=== PATIENT | female | born 1980 | race Caucasian/White ===

== ENCOUNTER 2024-06-04 02:29 | Day surgery (SDC) | payer OTHER, SELFPAY ==
--- NOTE | 2024-05-23 09:31 | PC.NURSE ---
Report to the Outpatient Waiting Room, entrance under the green pavilion located off [facility], at time ___0700____ on date ___[id number]____. Planned Procedure Time: ___0900 .? Time changes happen often and if your time is changed the preop area will call you the afternoon before. - You and your visitor will be asked to self-screen and do not enter if you have any COVID symptoms. Please call surgeon if you need to reschedule. - A mask is optional within the hospital at this time. Patients may have clear liquids (water, carbonated beverages, clear teas, apple juice) until 3 hours prior to surgery with a maximum of 20 ounces. - No food from midnight until time of surgery and no smoking. This includes no chewing gum, candy or mints. - Take only the following medications with a SIP of water on the morning of surgery: n/a DO NOT STOP ANY OF YOUR OTHER PRESCRIPTION MEDICATIONS PRIOR TO SURGERY EXCEPT THE FOLLOWING Medications to discontinue per physician: Take your last dose of multivitamin on 05-31-2024 Please no make-up, nail pashto, hairspray, perfume, deodorant, or body powder the day of surgery.? No jewelry (including any body piercings) or valuables the day of surgery, leave them at home.? Please take a shower or bath the night before, or the morning of, surgery with an antibacterial soap.? Wear comfortable, loose fitting clothing.? - Jewelry must be removed prior to entering the operating room.? Rings and piercings that are not removed may be cut off. - The hospital will not accept responsibility for valuables.? - Please leave all valuables, including medications, at home the day of surgery. If you are going home after surgery, a licensed truck driver supervisor must drive you home.? - NO public transportation without another adult if you receive anesthesia. - We recommend that an adult stay with you for 24 hours following discharge. - We also recommend that you do not drive, make important decision, drink alcoholic beverages, or take any drugs that were not prescribed by your health care provider for at least 24 hours after your discharge time. For Pediatric surgeries, we recommend two adults accompany the child home. Follow any additional instructions given to you from your surgeon. Telephone instructions given to ___patient ( Dorothy ) and asked if any additional questions and then verbalized understanding. Patient advised to call surgeon office or pre surgery nurse liaison [phone] if any additional questions.
[2024-05-23 09:57] VITALS: BMI 26.5
[2024-06-04 07:10] VITALS: BP 117/71; PULSE 70; RESP 16; TEMP 36.1; O2SAT 100
--- NOTE | 2024-06-04 07:15 | WPDANESEPPF ---
Anes - Initial Pre Proc Eval Procedure: Operation Date: 06/04/24 09:00 Proposed Procedures p Hysteroscopy with Biopsy of Endometrium and/or Polypectomy - Bentley Macario MD Date/Time: 06/04/24 07:15 Surgeon: Bentley Macario MD Pre Op Diagnosis: abnormal uterine bleeding Patient Data Age: 44 Gender: F Height: 1.6 m Weight: 68.03 kg Allergies Allergy/AdvReac Type Severity Reaction Status Date / Time pineapple Allergy Intermediate Itching Verified 06/04/24 07:15 Home Medications ?Medication ?Instructions ?Recorded ?Confirmed ?Type multivitamin (Daily Multi-Vitamin 1 tablet PO DAILY 05/23/24 05/23/24 History tablet) Patient hx anesthesia problems: none Family hx anesthesia problems: none Results Review: All pre-operative results and documents have been reviewed as part of the pre-operative evaluation. [facility] Social History Social History Smoking status: Never smoker Second hand tobacco smoke exposure: No Alcohol intake: current Alcohol use details: rare <1 per week Substance use: never Substance use type: does not use Living arrangements: alone Spiritual care concerns: No Anes - Eval Final PreProcedure Day of Procedure 06/04/24 07:15 Patient weight: overweight Heart: regular rate and rhythm Lungs: clear to auscultation Airway: Mallampati scale class II Neurological: alert and oriented Last oral intake: >/= 8 hours ASA classification: I Emergent: no Anesthetic plan: proceed Anesthesia type and monitoring: general GIVS and standard monitoring Results Review: All pre-operative results and documents have been reviewed as part of the pre-operative evaluation. Informed Consent: The patient's anesthetic plan and its attendant risks and benefits were discussed with the patient/family/POA. Questions were solicited and answers provided to the satisfaction of the patient/family/POA.
[2024-06-04] MEDS: ACETAMINOPHEN 500 MG TABLET 1000 MG PO (07:40)
[2024-06-04 07:44] LABS: BEDSIDEPREGUCG Negative (Negative)
[2024-06-04] MEDS: LACTATED RINGERS 1,000 ML 30 ML IV CONT (07:44)
--- NOTE | 2024-06-04 07:45 | PM.IMHP ---
H&P: HPI History of Present Illness Date/Time: 06/04/24 07:45 Chief Complaint: intermenstrual bleeding Narrative: Patient is a 44 year old female who presents for hysteroscopy and polypectomy. She presented to the office for an episode of intermenstrual bleeding. She underwent evaluation with pelvic US that demonstrated an 8mm hyperechoic focus in the endometrium with a feeder vessel, suspicious for endometrial polyp. She denies further episodes of irregular bleeding, however given US findings was counseled on polyp removal. Patient desires to move forward with polyp removal. Denies nausea, vomiting, diarrhea, constipation, or abdominal pain. On menses currently. Review of Systems Review of Systems: All systems reviewed & are unremarkable except as noted in HPI and below PMFSH Social History Social History Smoking status: Never smoker Second hand tobacco smoke exposure: No Alcohol intake: current Alcohol use details: rare <1 per week Substance use: never Substance use type: does not use Living arrangements: alone Spiritual care concerns: No Meds Home Medications and Allergies Home Medications ?Medication ?Instructions ?Recorded ?Confirmed ?Type multivitamin (Daily Multi-Vitamin 1 tablet PO DAILY 05/23/24 06/04/24 History tablet) Allergies Allergy/AdvReac Type Severity Reaction Status Date / Time pineapple Allergy Intermediate Itching Verified 06/04/24 07:15 Vital Signs Vital Signs - 24 hr 06/04/24 07:10 Temperature 97 F L Pulse Rate 70 Respiratory Rate 16 Blood Pressure 117/71 Pulse Oximetry 100 Oxygen Delivery Room Air Exam Const: General: comfortable and no acute distress HENMT: Mouth: Yes moist mucous membranes Resp: Effort & Inspection: normal respiratory effort Cardio: Rate: regular rate Skin: General skin exam: normal color Extrem: General: normal to inspection Psych: Mental Status: mental status grossly normal Assessment and Plan Assessment and plan (1) Abnormal uterine bleeding due to endometrial polyp: Code(s): N93.9 - Abnormal uterine and vaginal bleeding, unspecified; N84.0 - Polyp of corpus uteri Status: Acute Assessment and Plan: - one episode of intermenstrual bleeding 01/2024 - otherwise normal periods - pelvic US demonstrates possible endometrial polyp with feeder vessel - risks and benefits of removal discussed with patient - patient desires to proceed with hysteroscopy and polypectomy
--- NOTE | 2024-06-04 08:26 | WPDHPUPDATE1 ---
History and Physical Update Update Date/Time: 06/04/24 08:26 History and Physical has been reviewed, including an updated exam of the patient. There are NO changes in the patient's condition. Risks, benefits, and alternatives have been discussed and questions answered. Patient agrees to proceed with procedure.
[2024-06-04] MEDS: LIDO 1%/EPINEPHRINE 1:100,000 50 ML VIAL 10 ML INFILTRATE (09:06)
--- NOTE | 2024-06-04 09:11 | W.PM.PROC2 ---
Procedure Note - Detailed Date of Procedure 06/04/24 Pre-op Diagnosis abnormal uterine bleeding Post-op Diagnosis Same Procedure Performed hysteroscopy, polypectomy Surgeon Bentley Macario MD Anesthesia MAC (with paracervical block) Findings normal appearing tubal ostia bilaterally; endometrial polyp attached to left endometrial sidewall, otherwise normal appearing endometrial cavity Description of Procedure The patient was taken to the operating room with IVFs running. She was placed into the dorsal supine position where she received MAC without any difficulty. The patient was placed in the dorsal lithotomy position using Mike stirrups. EUA revealed findings as above. She was then prepped and draped in a normal sterile fashion. A time-out procedure was performed and all members of the OR team agreed on the patient and plan. A bivalve speculum was then inserted into the patient's vagina. The anterior lip of the cervix was grasped with a single tooth tenaculum. The uterus was gently sounded to 7 cm. The hysteroscope was then inserted into the uterine cavity using saline as the distension media and revealed the above findings. Both ostia were identified and pictures were taken. At this point, the morcellator was then introduced into the hysteroscope and calibrated. The tip of the morcellator was then applied to the polyp and activated. The polyp was removed to its base. At the end of the procedure, the uterine cavity was clear of all pathology. The specimen was sent for pathology. The hysteroscope and tenaculum were removed. The speculum was then reintroduced into the vagina and the anterior lip of the cervix was hemostatic. The speculum was then removed. The patient tolerated the procedure well. Sponge, lap, and instrument counts were correct X2. The patient was taken out of the dorsal lithotomy position and was awakened from anesthesia. She was taken to the recovery room in stable condition. Estimated Blood Loss 5 Pathology Yes Complications No immediate complications Condition Stable Disposition Same day
[2024-06-04 09:14] VITALS: BP 91/74; PULSE 83; RESP 16; O2SAT 92
[2024-06-04 09:45] VITALS: BP 116/65; PULSE 74; RESP 16; O2SAT 96
[2024-06-04 10:15] VITALS: BP 118/67; PULSE 70; RESP 16
[2024-06-04 10:30] VITALS: BP 120/65; PULSE 72; RESP 16
--- OUTSIDE RECORDS SUMMARY | 2024-06-07 11:16 | XMS_ITS | Referral Summary ---
Author Organization [facility] [employer] Address [address] [place] [address] Care Team Providers Care Patient Safety Coordinator Name Role Phone Unavailable Primary Care Provider Unavailabl e Source Comments [facility] [employer],non-owned Affiliates and Associated Physician Practices is amultiple site organization consisting of ambulatory clinics and hospital sitesin [place], [place], [place] and [place]. This disclosure is being madepursuant to the Care Everywhere program and may not contain all information available regarding this patient. Last updated 18.[employer] Allergies No known active allergies Medications * Be aware that medications may not be up to date on this document. Alwaysverify current medications with the patient. Medication Sig Dispensed Refills Start Date End Date Status albuterol HFA (VENTOLIN HFA) 108 (90 BASE) MCG/ACT inhaler Inhale 2 Puffs by mouth every 6 hours as needed for Wheezing or Cough 1 Inhaler 09/03/2016 Active fluticasone propionate (FLONASE ALLERGY RELIEF) 50 MCG/ACT nasal sprayIndications:Alonzo al Signs and Symptoms [place]i 2 Sprays into each nostril once daily Reasons: Signs and Symptoms of Nose Diseases 1 Bottle 09/03/2016 Active Active Problems No known active problems Social History Tobacco Use Types Packs/Day Years Used Date Smoking Tobacco: Never Sex and Gender Information Value Date Recorded Sex Assigned at Not on file Gender Identity Not on file Sexual Orientation Not on file Last Filed Vital Signs Vital Sign Reading Time Taken Comments Blood Pressure 118/76 09/03/2016 9:37 AM CDT Pulse 82 09/03/2016 9:37 AM CDT Temperature 37.2 ??C (99 ??F) 09/03/2016 9:37 AM CDT Respiratory Rate 16 09/03/2016 9:37 AM CDT Oxygen Saturation 99% 09/03/2016 9:37 AM CDT Inhaled Oxygen Concentration - - Weight 61.7 kg (136 lb) 09/03/2016 9:37 AM CDT Height 160 cm (5' 3 ) 09/03/2016 9:37 AM CDT Body Mass Index 24.09 09/03/2016 9:37 AM CDT Plan of Treatment Not on file
--- OUTSIDE RECORDS SUMMARY | 2024-06-07 11:16 | XMS_ITS | Clinical Summary ---
Author Organization [facility] [employer] Address [address] [place] [address] Care Team Providers Care Customer Account Executive Name Role Phone Unavailable Primary Care Provider Unavailabl e Source Comments [facility] [employer],non-owned Affiliates and Associated Physician Practices is amultiple site organization consisting of ambulatory clinics and hospital sitesin [place], [place], [place] and [place]. This disclosure is being madepursuant to the Care Everywhere program and may not contain all information available regarding this patient. Last updated 18[employer] Allergies No known active allergies Medications * [...] MCG/ACT nasal sprayIndications:Alonzo al Signs and Symptoms [place] 2 Sprays into each nostril once daily [...] 09/03/2016 9:37 AM CDT Plan of Treatment Health Maintenance Due Date Last Done Comments LIPID TESTING 1982 MAMMOGRAM 1982 PAP SMEAR 1982 HIV SCREENING 1997 HEPATITIS C SCREENING 01/22/2000 DTAP/TDAP/TD VACCINES (1 - Tdap) 2001 HEPATITIS B VACCINE (1 of 3 - 19+ 3-dose series) 2001 COVID-19 VACCINE ( - 2023-2 5 season) 2024 INFLUENZA VACCINE (#1) 2024 DEPRESSION SCREENING 05/16/2024 ZOSTER VACCINE (1 of 2) 01/27/2032 HIB VACCINE Aged Out No longer eligi ble based on patient's age to complete this topic HPV VACCINE Aged Out No longer eligi ble based on patient's age to complete this topic MENINGOCOCCAL (Group B) VACCINE Aged Out No longer eligible based on patient's age to complete this topic MENINGOCOCCAL VACCINE Aged Out No monica becky eligible based on patient's age to complete this topic PNEUMOCOCCAL VACCINE Aged Out No long er eligible based on patient's age to complete this topic
--- OUTSIDE RECORDS SUMMARY | 2024-06-07 11:16 | XMS_ITS | Data Portability ---
Author Organization [facility] [place] Address [address] [place] [address] [place] [address] Assessment Encounter Date Assessment Date Assessment LastModified by Organization Details LastModified Time 04/03/2024 04/03/2024 Annual gynecological exam performed. Patient will come back in a year unless there are new symptoms. [email or web address] Not available 04/03/2024 11:04:29 Plan of Treatment Reminders Order Date Submit Date Provider Last Modified By Organization Details Last Modified Time Details Appointments SURG POST OP 2024 08:30A Trisha ESCOBAR MD Not available Not available Not available Lab None recorded. Referral None recorded. Procedures None recorded. Surgeries hysterosc opy, surgical, with biopsy of endometri um and/or polypecto my (SURG) [address], [address] [place] [address], [place], [address], 04/30/2024 13:34:13 Imaging US, pelvis 2023 024 [email or web address] [place], [address], [address], [place], [address], 03/20/2024 14:22:15 US, transvagi nal 2023 024 [email or web address] [place], [address], [address], [place], [address], 03/20/2024 14:22:15 MAMMO, screening , digital, bilateral 2023 024 JOSE [facility], [address], [place], [address], 04/10/2024 04:03:26 Medication Orders None recorded. Patient TargetsNo targets recorded. Patient InstructionsNo instructions recorded. Reason for Referral None Reported. Results Created Date Observation Date Name Description Value Unit Range Abnormal Flag Note LastModifiedBy Organization Detail LastModifiedTime 04/03/20 24 04/03/2024 IMAGE GUIDE D PAP AND HPV REGAR DLESS image guided Pap, HPV regardless of Pap result SEE RESULT S BELOW CASE REPOR T: Cytol ogy Gynec ologi mike Repor t Case: [id number] Autho yoselin g Provi sanjuanita: Luis Junior MD Colle cted: 04/03 1300 Order ing Locat ion: [place] Patho logy Recei salinas: 04/04 0828 First Lowe n: Etta Velasquez, CT Speci men: Sami walker Pap - Image d, Cervi x STATE MENT OF ADEQU ACY: Satis facto ry for evalu ation Trans forma tion zone compo nent prese nt Parti ally obscu ring blood prese nt ----- ----- ----- ----- ----- ----- ----- ----- ----- ----- ----- ----- ----- ----- ----- ----- ----- ---- FINAL DIAGN OSIS: Negat rocky for Intra epith elial Rafaela boateng or Althea bryant ([facility]) . Elect sun mendieta d by Etta Velasquez, CT on 04/13 at 12:58 PM ----- ----- ----- ----- ----- ----- ----- ----- ----- ----- ----- ----- ----- ----- ----- ----- ----- ---- HPV RESUL TS: HPV mRNA E6/E7 : No HPV mRNA Detec salma NOTE: This high risk HPV mRNA assay detec ts fourt een high- risk HPV types (16, 18, 31, 33, 35, 39, 45, 51, 52, 56, 58, 59, 66, 68) witho ut diffe renti ation . COMME NT: This speci men was revie wed by a Cytot echno logis t and/o r Patho logis t (as indic ated in this repor t) after evalu ation using the Thinp rep Imagi ng Syste m. CLINI MIKE INFOR MATIO N: Menst rual Statu s: LMP (if appli cable ): Clini mike Histo ry/Pr eviou s Pap: Type of Neopl william (if appli cable ): Signi fican t Clini mike Findi ngs: Other Histo ry: Hormo mushtaq (if appli cable ): PAP EDUCA SANDRA L NOTE: The Pap Test is a scree aaron test with an inher ent false negat rocky rate. Liqui d-bas ed sampl ing may decre ase, but will not elimi gato, false negat rocky resul ts. A negat rocky resul t does not precl ude the prese nce and/o r devel opmen t of disea se, since the prese nce of abnor mal cells in the sampl e depen ds on the locat ion of the lesio n and sampl ing techn ique. Kemar nued regul ar scree aaron is the best metho d of cance r preve ntion . If repor salma cytol ogic findi ng do not corre late with physi mike and/o r histo rical findi ngs, furth er inves tigat ion is recom cameron d, as clini michelle perea nted. Not Available [facility] (Lab) [address], [place], [address], 04/13/2024 14:01:11 03/20/20 24 03/20/2024 US, pelvi s No observ ation record ed. [email or web address] [place] [address], [place], [address], 03/20/2024 11:22:15 03/20/20 24 03/20/2024 US, trans vagin al No observ ation record ed. [email or web address] [place] [address], [place], [address], 03/20/2024 11:22:25 03/20/20 24 03/20/2024 US, pelvi s No observ ation record ed. [email or web address] [address], [place], [address], 03/20/2024 21:31:25 Result Notes None recorded. Procedures Surgical History Date Name Laterality Status Provider Name and Address Organization Details Recorded Time 2 extraction of wisdom tooth completed Alethea Rodriguez [facility] 04/03/2024 11:07:37 Imaging Results Imaging Date Name Status LastModified by Organization Details LastModified Time 03/20/2024 US, pelvis completed [email or web address] [place] [address], [place], [address], 03/20/2024 11:22:15 03/20/2024 [facility]inal [email or web address] [address], [place], [address], 03/20/2024 11:22:25 03/20/2024 US, pelvis completed [email or web address] [address], [place], [address], 03/20/2024 21:31:25 Procedure Notes None recorded. Medical Equipment None Reported. 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 11:14:59 Medications Not known to be on any medication Vitals Date Recorded Body height Body mass index (BMI) Body weight Systolic blood pressure Diastolic blood pressure Provider Name and Address Organization Details Last Updated DateTime 03/13/2024 162.56 cm 25.7 kg/m2 10173.86 g 129 mm[Hg] 83 mm[Hg] Natacha Deshpande [facility] 4 11:19:20 Date Recorded Body height Body mass index (BMI) Body weight Systolic blood pressure Diastolic blood pressure Provider Name and Address Organization Details Last Updated DateTime 04/03/2024 162.56 cm 26.3 kg/m2 12351.63 g 117 mm[Hg] 75 mm[Hg] Alethea Michael [facility] 11:06:48 Social History Question Answer Notes LastModified by Organizat ion Details LastModified Time Do You Have An Advance Directive? No Information not available 04/03/2024 What Is Your Level Of Alcohol Consumption? Occasional [email or web address] Information not available 03/13/2024 Are You Blind Or Do You Have Difficulty Seeing? No [email or web address] Information not available 03/13/2024 What Is Your Level Of Caffeine Consumption? Heavy [email or web address] Information not available 03/13/2024 How Much Tobacco Do You Chew? None [email or web address] Information not available 03/13/2024 In The 14 Days Before Symptom Onset, Have You Had Close Contact With A Laboratory-confir med COVID-19 While That Case Was Ill? No [email or web address] Information not available 03/13/2024 In The 14 Days Before Symptom Onset, Have You Had Close Contact With A Person Who Is Under Investigation For COVID-19 While That Person Was Ill? No Information not available 03/13/2024 Have You Been To An Area Known To Be High Risk For COVID-19? No [email or web address] Information not available 03/13/2024 Are You Deaf Or Do You Have Serious Difficulty Hearing? No [email or web address] Information not available 03/13/2024 What Type Of Diet Are You Following? VEGETARIAN [email or web address] Information not available 03/13/2024 What Is The Highest Grade Or Level Of School You Have Completed Or The Highest Degree You Have Received? 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 Yes [email or web address] Information not available 03/13/2024 Do You Use Protection During Sex? Always [email or web address] Information not available 03/13/2024 Do You Use Your Seat Belt Or Car Seat Routinely? Yes [email or web address] Information not available 03/13/2024 Are You Sexually Active? No Information not available 03/13/2024 Do You Have Smoke And Carbon Monoxide Detectors In Your Home? Yes [email or web address] Information not available 03/13/2024 How Much Tobacco Do You Smoke? No [email or web address] Information not available 03/13/2024 Do You Feel Stressed (tense, Restless, Nervous, Or Anxious, Or Unable To Sleep At Night)? [id number] [email or web address] Information not available 03/13/2024 Do You Use Any Illicit Or Recreational Drugs? No Information not available 03/13/2024 Do You Use Sunscreen Routinely? Yes [email or web address] Information not available 03/13/2024 Have You Used IV Drugs? No [email or web address] Information not available 03/13/2024 Sex: Unknown Functional Status Question Answer Note LastModified by Organizat ion Details LastModified Time Do you have difficulty walking or climbing stairs? No Information not available 03/13/2024 Are you able to walk? YESWOREST [email or web address] Information not available 03/13/2024 Are you able to care for yourself? Yes Information not available 03/13/2024 Do you have difficulty dressing or bathing? No Information not available 03/13/2024 What is your exercise level? Occasional [email or web address] Information not available 03/13/2024 Mental Status None recorded. Family History Relationship Description Onset Age of this Age Resolved Age Notes LastModified by Organization Details LastModified Time Paternal Grandmother Malignant tumor of breast [email or web address] Not available 2023 11:15:04 Maternal Grandmother Heart disease [email or web address] Not available 2023 11:15:04 Maternal Grandfather Diabetes mellitus [email or web address] Not available 2023 11:15:04 Father Disorder of thyroid gland [email or web address] Not available 2023 11:15:04 Medical History Condition Response No Past Medical History Y Gynecological History Statement/Question Response Flow Moderate Date of LMP 03/09/2024 On BCP's at Conception? N N Was last menstrual period normal Y STIs/STDs N HPV Vaccine N Duration of Flow (days) 7 Current Control Method None Frequency of Cycle (Q days) 28 Sexually Active? N None Menses Monthly Y Age of first menstrual cycle 15 Date of Last Pap Smear Sexual Problems? N Desired Control Method N/A LMP Definite N Obstetrics History GPAL:G 0 P 0 0 0 0 Past Encounters Encounter ID Performer Location Encounter Start Date Encounter Closed Date Diagnosis/Indication Diagnosis SNOMED-CT Code Diagnosis ICD10 Code Diagnosis Note [id number] YEIMI ESCOBAR MD [place] [address] [address] 03/13/2024 11:05:12 03/14/2024 12:46:20 Abnormal uterine bleeding 8291522658 9100 N93.9 - one episode of off cycle bleeding in 01/2024- normal period 02/2024- unclear etiology of AUB, given only one episode- will evaluate with pelvic US- unclear if due to supplement usage, patient has now stopped- RTC for WWE and pap smear following pelvic US [id number] Erica Martini [place] [address] [address] 03/20/2024 09:11:12 03/20/2024 10:03:55 Abnormal uterine bleeding 8475630515 9100 N93.9 [id number] YEIMI ESCOBAR MD [place] [address] [address] 04/03/2024 10:57:01 04/03/2024 17:13:38 Screening mammography 51108624 Z12.31 Gynecologi c examination 53874896 Z01.419 Z11.51 Well woman care- Cervical cancer screening: Pap smear obtained today, will follow up on the results with the patient as they become available- Breast cancer screening: mammogram completed- Colon cancer screening: does not qualify- STD testing: declined- hereditary cancer screening: does not qualify for testing Abnormal u terine bleeding 5731017171 9100 N93.9 - one episode of off cycle bleeding in 01/2024- normal period 02/2024- unclear if due to supplement usage, patient has now stopped- pelvic US demonstrat ed possible endometria l polyp with feeder vessel- recommend hysterosco py and polypectom y- discussed risks of surgery, including bleeding, infection, and injury to adjacent structures - patient voices understand ing and would like to proceed with procedure as discussed Health Concerns Section Related Observation LastModified by Organization Detai ls LastModified Time None Recorded Concern Status LastModified by Organization Details LastModified Time None Recorded Advance Directives Directive N: Payers Encounter Date Sequence Insurance Name Policy Number Policy Franklin Covered Member ID Franklin Member ID Guarantor Name 03/13/2024 1 [employer] - CHOICE (POS II) [id number] Susan Diana [id number] Susan Diana 03/20/2024 1 [employer] - CHOICE (POS II) [id number] Susan Diana [id number] Susan Diana 04/03/2024 1 [employer] - CHOICE (POS II) [id number] Susan Ortiz [id number] Susan Ortiz Notes Date Note Type Note Provider Name and Address Organization Details Recorded Time 03/13/2024 text/html Presents to reestablish care and discuss an irregular bleeding episode. She reports 5 day episode of off cycle bleeding in January. No pain during the episode. Had started taking Curamin supplement a few weeks before. February period wnl. No pap smear in 14 years. Currently on menses. Hx of breast cancer in maternal grandmother, 4x per patient. Diagnosed in 60s. Has not started mammogram screening. YEIMI ESCOBAR MD [address], [place], [address], [place] [facility] 03/13/2024 22:36:41 04/03/2024 text/html Presents today f or her annual well-woman exam. Denies abnormal vaginal discharge. She is sexually active and denies dyspareunia. She has not noticed any changes or masses in her breasts. LMP 03/09/24. Periods are Q28 days and last 7 days. Flow is moderate, no intermenstrual spotting. Also presents to discuss episodes of intermenstrual spotting. Has not had bleeding since last visit. Pelvic US demonstrates possible endometrial polyp, otherwise normal ultrasound. YEIMI ESCOBAR MD [address], [place], [address], [place] [facility] 04/03/2024 15:42:37 OBGyn Episode No OBEpisode recorded.
--- OUTSIDE RECORDS SUMMARY | 2024-06-07 11:16 | XMS_ITS | Patient Health Summary ---
Author Organization [facility] Address [address] [address] Care Team Providers Care Flight Coordinator Name Role Phone Unavailable Primary Care Provider Unavailabl e Note from [facility],non-owned Affiliates and Associated Physician Practices is amultiple site organization consisting of ambulatory clinics and hospital sitesin [place], [place], [place] and [place]. This disclosure is being madepursuant to the Care Everywhere program and may not contain all information available regarding this patient. Last updated 18.[facility] Allergies No known active allergies Medications * Be aware that medications may not be up to date on this document. Alwaysverify current medications with the patient. * albuterol HFA (VENTOLIN HFA) 108 (90 BASE) MCG/ACT inhaler(Started 09/03/2016) Inhale 2 Puffs by mouth every 6 hours as needed for Wheezing or Cough * fluticasone propionate (FLONASE ALLERGY RELIEF) 50 MCG/ACT nasal spray(Started 09/03/2016) [place] 2 Sprays into each nostril once daily Reasons: Signs and Symptoms of Nose Diseases Active Problems No known active problems Social [...] Mass Index 24.09 09/03/2016 9:37 AM CDT Procedures * STREP A SCREEN - POINT OF CARE (AMB) STL(Performed 09/03/2016) Performed for Acute sinusitis, recurrence not specified, unspecified location Results * STREP A SCREEN (09/03/2016 10:04 AM CDT) Strep A Rapid POCT Negative Negative Strep A Internal Control Present Lot # [id number] Expiration Date 05/27/18 Throat ENTIRE THROAT (SURFACE REGION OF NECK) / Unknown 09/03/2016 10:04 AM CDT Pradeep Coleman [employer] MARKET[employer] SPECIALIST LAB - POINT OF CARE ORDERABLES
== END 2024-06-04 10:40 | disposition home or self-care (01) ==
PROVIDERS: Visit Provider Obstetrics & Gynecology
PROC: 0U5B8ZZ Destruction of Endometrium, Via Natural or Artificial Opening Endoscopic (ICD-10-PCS; CPT 58563; principal; 2024-06-04 09:00)
DX: N84.0 Polyp of corpus uteri (principal)
CPT/HCPCS: 58558; 88305; A9270; J2003; J2004; J2250; J2405; J2704; J3010; J7120

== ENCOUNTER 2024-09-08 11:07 | Outpatient (CLI) | payer OTHER, SELFPAY ==
--- NOTE | ~2024-09-08 | MM_ITS ---
EXAMINATION: MM screening tigist BI w bonifacio HISTORY: Screening mammogram TECHNIQUE: Craniocaudal and mediolateral oblique 3-D tomosynthesis images were obtained and synthetic 2-D images were generated. CAD analysis was submitted and interpreted. COMPARISON: No prior mammogram is available for comparison at this institution. BREAST PARENCHYMAL COMPOSITION:Dense: The breasts are heterogeneously dense, which may obscure small masses. FINDINGS: Multiple bilateral circumscribed low-density masses are present, most compatible bilateral fibroadenomas and/or cysts. No overtly suspicious mass identified. No suspicious distortion or microc alcification.. IMPRESSION: No mammographic evidence of malignancy. Recommend routine screening mammography in one year. BI-RADS Category 2: Benign finding(s). Reviewed, dictated and finalized at location .
== END 2024-09-08 11:08 | disposition home or self-care (01) ==
LOC: MICIMG 11:08
PROVIDERS: PCP Obstetrics & Gynecology; Visit Provider Obstetrics & Gynecology
DX: Z12.31 Encounter for screening mammogram for malignant neoplasm of breast (principal)
CPT/HCPCS: 77063; 77067